=== PATIENT | male | born 1985 | race Caucasian/White ===

== ENCOUNTER 2022-10-26 12:57 | Emergency (ER) | payer BC, MEDICAID, MEDICARE ==
[~2022-10-26] VITALS: Ht 157 cm; Wt 56.6 kg
--- NOTE | 2022-10-26 13:31 | ED Abdominal Pain ---
General Chief Complaint: Abdominal/GI Problems Stated Complaint: AB DISOMFORT/PAIN AROUND INCISSION/KIDNEY TRANSPLA Nursing Triage Note: pt presents to ed via pov from home with complaints of r sided abdominal pain more in his upper quadrant x 1 week. pt had a kidney transplant 17 years ago. pt reports he had labs drawn related to that yesterday and was told they were all good. pt reportss nausea but no vomiting. Source of Information: Patient Exam Limitations: No Limitations History of Present Illness Date Seen by Provider: Oct 26, 2022 Time Seen by Provider: 13:30 Initial Comments Patient is a 37-year-old male who presents to the emergency department with a chief complaint of right upper quadrant abdominal pain, nausea over the course of the last week. He states he was in [place] and had some hunted deer meat game meats last week and ever since he has had a queasy stomach and discomfort in the upper abdomen. He states he has been very "gassy". A little diarrhea nonblack nonbloody. He has had no actual vomiting. He states he thinks he is lost about 5 pounds in the last week. He has had subjective fever, he feels a little chilled. Normal urine output. He is status post kidney transplant 19 years ago at for IgA nephropathy. He had basic metabolic panel, urinalysis urine electrolytes and tacrolimus level done yesterday which he brought with him today. These labs have been reviewed by me and are all within normal limits. He has scheduled follow-up with his transplant team on 17 November. Timing/Duration: 1 Week Severity/Quality: Moderate Location: RUQ Radiation: No Radiation Allergies and Home Medications Allergies Coded Allergies: No Known Allergies (Verified Allergy, Unknown, 01/15/06) Past Iqgzpyg-Ysvkez-Ofpqpx Hx Patient Social History Tobacco Use?: No Substance use?: Yes Substance type: Marijuana Additional substance use comme: last use 1 week ago Substance frequency: Once in a while Alcohol Use?: No Pt feels they are or have been: No Past Medical History Surgery/Hospitalization HX: [facility]: kidney transpant, fistula l arm, htn, hernia repair Physical Exam Vital Signs Vital Signs - First Documented 10/26/22 13:13 Pulse 69 Resp 18 B/P (MAP) 159/107 (124) Pulse Ox 97 Capillary Refill : Less Than 3 Seconds Height/Weight/BMI Height: '" Weight: lbs. oz. kg; 22.00 BMI Method: Progress/Results/Core Measures Results/Orders Lab Results Laboratory Tests Test 10/26/22 13:50 Range/Units White Blood Count 10.0 4.3-11.0 10^3/uL Red Blood Count 4.45 4.30-5.52 10^6/uL Hemoglobin 14.2 13.3-17.7 g/dL Hematocrit 40 40-54 % Mean Corpuscular Volume 91 80-99 fL Mean Corpuscular Hemoglobin 32 25-34 pg Mean Corpuscular Hemoglobin Concent 35 32-36 g/dL Red Cell Distribution Width 11.9 10.0-14.5 % Platelet Count 307 130-400 10^3/uL Mean Platelet Volume 9.6 9.0-12.2 fL Immature Granulocyte % (Auto) 0 % Neutrophils (%) (Auto) 65 42-75 % Lymphocytes (%) (Auto) 26 12-44 % Monocytes (%) (Auto) 7 0-12 % Eosinophils (%) (Auto) 1 0-10 % Basophils (%) (Auto) 1 0-10 % Neutrophils # (Auto) 6.5 1.8-7.8 10^3/uL Lymphocytes # (Auto) 2.6 1.0-4.0 10^3/uL Monocytes # (Auto) 0.7 0.0-1.0 10^3/uL Eosinophils # (Auto) 0.1 0.0-0.3 10^3/uL Basophils # (Auto) 0.1 0.0-0.1 10^3/uL Immature Granulocyte # (Auto) 0.0 0.0-0.1 10^3/uL Sodium Level 140 135-145 MMOL/L Potassium Level 4.2 3.6-5.0 MMOL/L Chloride Level 108 H 98-107 MMOL/L Carbon Dioxide Level 21 21-32 MMOL/L Anion Gap 11 5-14 MMOL/L Blood Urea Nitrogen 16 7-18 MG/DL Creatinine 1.04 0.60-1.30 MG/DL Estimat Glomerular Filtration Rate 94 BUN/Creatinine Ratio 15 Glucose Level 106 H 70-105 MG/DL Calcium Level 10.0 8.5-10.1 MG/DL Corrected Calcium 9.8 8.5-10.1 MG/DL Total Bilirubin 0.4 0.1-1.0 MG/DL Aspartate Amino Transf (AST/SGOT) 11 5-34 U/L Alanine Aminotransferase (ALT/SGPT) 11 0-55 U/L Alkaline Phosphatase 68 40-136 U/L Total Protein 7.3 6.4-8.2 GM/DL Albumin 4.3 3.2-4.5 GM/DL My Orders Orders - REFUGIO BLANTON MD Ed Iv/Invasive Line Start (10/26/22 13:43) Cbc With Automated Diff (10/26/22 13:43) Comprehensive Metabolic Panel (10/26/22 13:43) Ns Iv 1000 Ml (Sodium Chloride 0.9%) (10/26/22 13:45) Hydroxyzine Cap/Tab (Vistaril) (10/26/22 14:45) Medications Given in ED Current Medications Medications Dose Ordered Sig/Kolby Route Start Time Stop Time Status Last Admin Dose Admin Hydroxyzine Pamoate 25 mg ONCE ONCE PO 10/26/22 14:45 10/26/22 14:46 DC 10/26/22 14:44 25 MG Vital Signs/I&O 10/26/22 13:13 Pulse 69 Resp 18 B/P (MAP) 159/107 (124) Pulse Ox 97 Blood Pressure Mean: 124 Departure Impression Primary Impression: Abdominal pain Qualified Codes: R10.11 - Right upper quadrant pain Additional Impression: S/P kidney transplant Disposition: 01 HOME, SELF-CARE Condition: Stable Departure-Patient Inst. Decision time for Depature: 15:10 Referrals: NO,LOCAL PHYSICIAN (PCP/Family) Primary Care Physician Patient Instructions: Abdominal Pain, Adult ED Add. Discharge Instructions: Continue your daily medications as prescribed. Follow up with [facility] for your abdominal discomfort. If you have any fever over 100.4 or vomiting please return to the Emergency Department for re-evaluation. You should start over the counter generic Prilosec (Omeprazole) one tablet at night daily. Ondansetron 4mg orally dissolving tablets every 8 hours for queasy stomach/nausea. Scripts Ondansetron (Ondansetron Odt) 4 Mg Tab.rapdis 4 MG SL Q8H PRN for NAUSEA/VOMITING, #12 TAB Prov: REFUGIO BLANTON MD 10/26/22 Work/School Note: Work Release Form Date Seen in the Emergency Department: Oct 26, 2022 Return to Work: Oct 28, 2022 Other Restrictions Listed Below: Off work 10/25, 10/26 and 10/27 due to illness REFUGIO BLANTON MD Oct 26, 2022 13:31
[2022-10-26] MEDS ORDERED: NS IV 1000 ML 1,000 ML IV SCH (13:45)
[2022-10-26 14:18] LABS: BASOPHILS # (AUTO) 0.1 10^3/uL (0.0-0.1); BASOPHILS % (AUTO) 1 % (0-10); EOSINOPHILS # (AUTO) 0.1 10^3/uL (0.0-0.3); EOSINOPHILS % (AUTO) 1 % (0-10); HEMATOCRIT 40 % (40-54); HEMOGLOBIN 14.2 g/dL (13.3-17.7); LYMPHOCYTES # (AUTO) 2.6 10^3/uL (1.0-4.0); LYMPHOCYTES % (AUTO) 26 % (12-44); MEAN CORPUSCULAR HEMOGLOBIN 32 pg (25-34); MEAN CORPUSCULAR HGB CONC 35 g/dL (32-36); MEAN CORPUSCULAR VOLUME 91 fL (80-99); MEAN PLATELET VOLUME 9.6 fL (9.0-12.2); MONOCYTES # (AUTO) 0.7 10^3/uL (0.0-1.0); MONOCYTES % (AUTO) 7 % (0-12); NEUTROPHILS # (AUTO) 6.5 10^3/uL (1.8-7.8); NEUTROPHILS % (AUTO) 65 % (42-75); PLATELET COUNT 307 10^3/uL (130-400)
[2022-10-26 14:22] LABS: ALBUMIN 4.3 GM/DL (3.2-4.5); POTASSIUM 4.2 MMOL/L (3.6-5.0)
[2022-10-26 14:25] LABS: TOTAL PROTEIN 7.3 GM/DL (6.4-8.2)
[2022-10-26 14:26] LABS: BILIRUBIN,TOTAL 0.4 MG/DL (0.1-1.0)
[2022-10-26 14:28] LABS: CREATININE SERUM 1.04 MG/DL (0.60-1.30)
[2022-10-26] MEDS ORDERED: hydrOXYzine (VISTARIL/ATARAX) 25 MG capsule/tablet PO ONE (14:45)
[2022-10-26] MEDS ORDERED: ONDA4TAB11 SL (15:13)
[2022-10-26 15:27] VITALS: BP 143/92
== END 2022-10-26 15:27 | disposition home or self-care (01) ==
LOC: EDUNIT# 12:57 → ER 13:01
DX: R10.11 Right upper quadrant pain (principal); R11.0 Nausea; Z94.0 Kidney transplant status
CPT/HCPCS: 36415; 80053; 85025